=== PATIENT | female | born 1990 | race Caucasian/White ===

== ENCOUNTER 2017-04-13 19:57 | Emergency (ER) | payer BC, OTHER ==
[2017-04-13 20:11] VITALS: TEMP 99
--- NOTE | 2017-04-13 20:26 | EDPHY ---
HPI/HX/ROS/PE/MDM Narrative: CHIEF COMPLAINT: High blood pressure,feels faint HPI: The patient is a 26-year-old female with no significant past medical history. Patient complains of approximately 1 month of decreased energy and swelling to her fingers and lower legs. The patient saw her primary physician, Dr. Humera Rodriguez approximately 1 week ago and had labs sent, but has been unable to obtain those results. This evening, she did extensive workout class and felt very lightheaded and near syncopal afterwards. She presented to an urgent care and was noted to have an elevated blood pressure and was sent to the emergency department. The patient complains of intermittent left-sided chest pain under left breast. She denies fever. She does complain of diffuse muscle soreness. No fever. Her last menstrual period was 1 week ago and was normal. REVIEW OF SYSTEMS: Aside from elements discussed in the HPI, a comprehensive 10-point review of systems was reviewed and is negative. PMH: None significant. History of wisdom teeth extraction SOCIAL HISTORY: Single. Works in sales. Denies drug abuse. PHYSICAL EXAM: General:Patient is alert, in no acute distress. ENT:Eyes are normal to inspection. ENT inspection normal. Neck: Normal inspection. Full range of motion. Respiratory:No respiratory distress. Breath sounds normal bilaterally. Cardiovascular: Regular rate and rhythm. Strong peripheral pulses. Normal cap refill. Abdomen:The abdomen is nontender to palpation. There are no peritoneal signs. There are normal bowel sounds. Back: Normal to inspection. No tenderness to palpation. Skin: Normal color. No rash. Warm and dry. Extremities: Normal appearance. Full range of motion. Mild nonpitting edema present to bilateral ankles. No calf tenderness to palpation. Neuro: Oriented x3. Normal motor function. Normal sensory function. MDM: This is a young healthy female who complains essentially of at least one month of mild peripheral edema. Labs in the ED are normal, as is her ECG, and I see no sign of renal failure, liver failure or CHF. Physical exam is essentially normal. I think the patient is safe for outpatient management. Review of outpatient labs indicate a mildly increased TSH, but patient already has follow- up in place to address this, and I see no sign of emergent hypothyroidism. - Data Points Laboratory Results: Laboratory Results 04/13/17 20:25 04/13/17 20:25 04/13/17 04/13/17 04/13/17 20:25 20:25 20:25 WBC 12.69 10^3/uL H 10^3/uL (3.80-9.50) RBC 4.33 10^6/uL 10^6/uL (4.18-5.33) Hgb 14.6 g/dL g/dL (12.6-16.3) Hct 41.4 % % (38.0-47.0) MCV 95.6 fL fL (81.5-99.8) MCH 33.7 pg pg (27.9-34.1) MCHC 35.3 g/dL g/dL (32.4-36.7) RDW 12.0 % % (11.5-15.2) Plt Count 297 10^3/uL 10^3/uL (150-400) MPV 9.2 fL fL (8.7-11.7) Neut % (Auto) 66.2 % % (39.3-74.2) Lymph % (Auto) 17.9 % % (15.0-45.0) [place] % (Auto) 7.2 % % (4.5-13.0) Eos % (Auto) 7.2 % % (0.6-7.6) Baso % (Auto) 0.9 % % (0.3-1.7) Nucleat RBC Rel Count 0.0 % % (0.0-0.2) Absolute Neuts (auto) 8.41 10^3/uL H 10^3/uL (1.70-6.50) Absolute Lymphs (auto) 2.27 10^3/uL 10^3/uL (1.00-3.00) Absolute Monos (auto) 0.92 10^3/uL H 10^3/uL (0.30-0.80) Absolute Eos (auto) 0.91 10^3/uL H 10^3/uL (0.03-0.40) Absolute Basos (auto) 0.11 10^3/uL H 10^3/uL (0.02-0.10) Absolute Nucleated RBC 0.00 10^3/uL 10^3/uL (0-0.01) Immature Gran % 0.6 % % (0.0-1.1) Immature Gran # 0.07 10^3/uL 10^3/uL (0.00-0.10) Sodium 134 mEq/L mEq/L (134-144) Potassium 3.7 mEq/L mEq/L (3.5-5.2) Chloride 103 mEq/L mEq/L (97-110) Carbon Dioxide 21 mEq/l L mEq/l (22-31) Anion Gap 10 mEq/L mEq/L (8-16) BUN 23 mg/dL mg/dL (7-23) Creatinine 0.9 mg/dL mg/dL (0.6-1.0) Estimated GFR > 60 Glucose 94 mg/dL mg/dL (70-100) Calcium 9.2 mg/dL mg/dL (8.5-10.4) Total Bilirubin 0.8 mg/dL mg/dL (0.1-1.4) Conjugated Bilirubin 0.2 mg/dL mg/dL (0.0-0.5) Unconjugated Bilirubin 0.6 mg/dL mg/dL (0.0-1.1) AST 33 IU/L IU/L (14-46) ALT 41 IU/L IU/L (9-52) Alkaline Phosphatase 70 IU/L IU/L (38-126) Troponin I < 0.012 ng/mL ng/mL (0-0.034) NT-Pro-B Natriuret Pep 36 pg/mL pg/mL (0-125) Total Protein 7.7 g/dL g/dL (6.3-8.2) Albumin 4.1 g/dL g/dL (3.5-5.0) Beta HCG, Qual NEGATIVE General Time Seen by Provider: 04/13/17 20:16 Initial Vital Signs: Initial Vital Signs Temperature (C) 37.2 C 04/13/17 20:07 Heart Rate 86 04/13/17 20:07 Respiratory Rate 14 04/13/17 20:07 Blood Pressure 138/96 H 04/13/17 20:07 O2 Sat (%) 100 04/13/17 20:07 O2 Delivery Mode Room Air Allergies/Adverse Reactions: amoxicillin Allergy (Verified 04/13/17 20:07) Home Medications: Medication Instructions Recorded [place] 28 Tablet 04/13/17 Departure - Departure Disposition: Home, Routine, Self-Care Clinical Impression: Edema Condition: Good Instructions: Edema (ED) Additional Instructions: Follow-up with your primary doctor within 72 hours. Return to the Emergency Department for fever, chest pain, shortness of breath, increasing pain or other worsening of condition. Referrals: Humera Rodriguez MD [Primary Care Provider] - As per Instructions
--- NOTE | 2017-04-13 20:35 | CPEKG ---
Heart Rate: 78 RR Interval: 769 P-R Interval: 168 QRSD Interval: 90 QT Interval: 392 QTC Interval: 447 P [place]: 77 QRS [place]: 78 T Wave [place]: 50 EKG Severity - NORMAL ECG - EKG Impression: SINUS RHYTHM Electronically Signed By: Sharath Hernandez 14-Apr-2017 16:54:58
[2017-04-13 20:36] LABS: % IMMATURE GRANULYOCYTES 0.6 % (0.0-1.1); ABSOLUTE IMMATURE GRANULOCYTES 0.07 10^3/uL (0.00-0.10); ADD DIFF? NO; ADD MORPH? NO; ADD SCAN? NO; ATYPICAL LYMPHOCYTE FLAG 20 (0-99); FRAGMENT RBC FLAG 0 (0-99); HEMATOCRIT 41.4 % (38.0-47.0); HEMOGLOBIN 14.6 g/dL (12.6-16.3); LEFT SHIFT FLG 0 (0-99); LIPEMIA HEMOLYSIS FLAG 90 (0-99); MEAN CELL HEMOGLOBIN 33.7 pg (27.9-34.1); MEAN CELL HEMOGLOBIN CONCENTR. 35.3 g/dL (32.4-36.7); MEAN CELL VOLUME 95.6 fL (81.5-99.8); MEAN PLATELET VOLUME 9.2 fL (8.7-11.7); PLATELET CLUMPS FLAG 0 (0-99); PLATELET COUNT 297 10^3/uL (150-400); RED BLOOD CELL COUNT 4.33 10^6/uL (4.18-5.33)
[2017-04-13 20:39] VITALS: O2SAT 97
[2017-04-13 20:47] LABS: ALANINE AMINOTRANSFERASE 41 IU/L (9-52); ALBUMIN 4.1 g/dL (3.5-5.0); ALKALINE PHOSPHATASE 70 IU/L (38-126); ANION GAP 10 mEq/L (8-16); ASPARTATE AMINOTRANSFERASE 33 IU/L (14-46); BILIRUBIN,TOTAL 0.8 mg/dL (0.1-1.4); BILIRUBIN-CONJUGATED 0.2 mg/dL (0.0-0.5); BILIRUBIN-UNCONJUGATED 0.6 mg/dL (0.0-1.1); CALCIUM 9.2 mg/dL (8.5-10.4); CARBON DIOXIDE 21 mEq/l (22-31); CHLORIDE 103 mEq/L (97-110); CREATININE 0.9 mg/dL (0.6-1.0); GLOMERULAR FILTRATION RATE > 60; GLUCOSE 94 mg/dL (70-100); POTASSIUM 3.7 mEq/L (3.5-5.2); SODIUM 134 mEq/L (134-144); TOTAL PROTEIN 7.7 g/dL (6.3-8.2)
[2017-04-13 21:03] LABS: TROPONIN I < 0.012 ng/mL (0-0.034)
[2017-04-13 21:49] VITALS: BP 112/77; PULSE 80; RESP 16
== END 2017-04-13 21:49 | disposition home or self-care (01) ==
DX: R60.9 Edema, unspecified (principal)

== ENCOUNTER → 2017-10-11 | Outpatient (CLI) | payer BC, OTHER | LOC: BMCIMAGING 13:50 | PROVIDERS: ATTEND Internal Medicine Rheumatology | DX: D86.9 Sarcoidosis, unspecified (principal); M79.89 Other specified soft tissue disorders ==